=== PATIENT | female | born 2005 | race Two or more races ===

== ENCOUNTER 2025-03-31 02:51 | Emergency (ER) | payer SELFPAY ==
[2025-03-31 02:57] VITALS: BP 106/63; BP 115/70; PULSE 65; RESP 20; TEMP 36.6; O2SAT 97; O2SAT 99; BMI 20.5
--- OUTSIDE RECORDS SUMMARY | 2025-03-31 03:34 | XMS_ITS | Encounter Summary ---
Author Organization [facility] Address [address] [place] [address] Phone Care Team Providers Care Gas Distribution And Emergency Clerk Name Role Phone Pcp, Unknown Primary Care Provider Unavailabl e Encounter Details Date Type Department Care Team (Late st Contact Info) Description 03/06/2025 Procedure Pass [facility], Ct Scan - [address] [address] Social History Tobacco Use Types Packs/Day Years Used Date Smoking Tobacco: Never Assessed Education Answer Date Recorded Are you interested in more education? Not on ron e 03/06/2025 Are you concerned about learning? Not on file 03/06/2025 No 03/06/2025 No 03/06/2025 Food Answer Date Recorded Within the past 6 months we worried whether our food would run out before we got money to buy more. Never True 03/06/2025 Within the past 6 months the food we bought just didn't last and we didn't have enough money to get more. Never True Residential Stability Answer Date Recor ded What is your housing situation today? I have anca sing 03/06/2025 How many times have you move d in the past 12 months? Zero (I did not move) 03/06/2025 Paying for Meds Answer Date Recorded Do you have trouble paying for medicines? No 03/06/2025 Paying Utility Bills Answer Date Record ed Do you have trouble paying your heating or elect ricity bill? No 03/06/2025 Transportation Answer Date Recorded Has the lack of transportati on kept you from medical appointments or from getting medications? No 03/06/2025 Digital Access Answer Date Recorded No 03/06/2025 Yes 03/06/2025 Do you have reliable internet access at home? Ye s 03/06/2025 Do you have a device (e.g., phone, tablet, computer) with a working camera? Yes 03/06/2025 Intimate Partner Violence Answer Date R ecorded Are you denied basic needs s uch as food, clothing, or medical care? Patient unable to respond 03/06/2025 In the past 12 months have y ou been in a relationship with a person who hurts, threatens, or tries to control you? Patient unable to respond 03/06/2025 Are you denied basic needs s uch as food, clothing, or medical care? Patient unable to respond 03/06/2025 In the past 12 months have y ou been in a relationship with a person who hurts, threatens, or tries to control you? Patient unable to respond 03/06/2025 Comments Unknown Sex and Gender Information Value Date Recorded Sex Assigned at Not on file Legal Sex Female 1:47 AM EST Gender Identity Not on file Sexual Orientation Not on file documented as of this encounter Functional Status * Calculated C-SSRS Risk Score (Lifetime/Recent) Answer Date of Assessment Author No Risk Indicated 03/06/2025 10:49 AM Melba He RN * Prosser Suicide Severity Rating Scale (Screener/Recent Self-Report) Question Answer Date of Assessment Author 1. Wish to be (Past 1 Month) No 025 10:49 AM Melba Berg RN 2. Non-Specific Active Suici allison Thoughts (Past 1 Month) No 03/06/2025 10:49 AM Melba Berg RN 6. Suicidal Behavior (Lifetime) No 5 10:49 AM Melba Berg, LUCHO documented as of this encounter Plan of Treatment Not on file documented as of this encounter Visit Diagnoses Not on filedocumented in this encounter Care Teams Gas Distribution And Emergency Clerk Relationship Specialty Start Date End Date Pcp, Unknown PCP - General 03/06/25 documented as of this encounter Additional Source Comments The information contained in this document represents components of the legal health record. It is not the complete legal health record.[facility]
--- OUTSIDE RECORDS SUMMARY | 2025-03-31 03:34 | XMS_ITS | Encounter Summary ---
Author Organization [facility], [facility], [facility] [employer], and Affiliates Address [address] [place] [address] Care Team Providers Care Director Of Public Relations Name Role Phone Monty Meehan MD Primary Care Provider [phone]- [phone] Encounter Details Date Type Department Care Team (Late st Contact Info) Description 08/28/2021 [facility] [address] [place] [id number] Ashwin Sun Jr., MD [address] [place] [address] [address] [place], [place] [id number] Closed displaced fracture of metatarsal bone of right foot with routine healing, unspecified metatarsal, subsequent encounter (Primary Dx) Social History Tobacco Use Types Packs/Day Years Used Date Smoking Tobacco: Never Smokeless Tobacco: Never Alcohol Use Standard Drinks/Week Comments Yes 0 (1 standard drink = 0.6 oz pur e alcohol) rare Comments Unknown Sex and Gender Information Value Date Recorded Sex Assigned at Female 10/06/2023 1:23 PM PDT Legal Sex Female 11:03 AM PDT Gender Identity Female 10/06/2023 1:23 PM PDT Sexual Orientation Straight 10/06/2023 1: 23 PM PDT documented as of this encounter Plan of Treatment Not on file documented as of this encounter Visit Diagnoses Diagnosis Closed displaced fracture of metatarsal bone of right foot with routine healing, unspecified metatarsal, subsequent encounter- Primary documented in this encounter Care Teams Director Of Public Relations Relationship Specialty Start Date End Date Monty Meehan MD PCP - General Pediatrics 07/09/17 documented as of this encounter
--- OUTSIDE RECORDS SUMMARY | 2025-03-31 03:34 | XMS_ITS | Clinical Summary ---
Author Organization [facility], [facility], [facility] [employer], and Affiliates Address [address] [facility] [facility] [place] [address] Care Team Providers Care Taxation Inspector Name Role Phone Monty Meehan MD Primary Care Provider [phone]- [phone] Allergies No known active allergies Medications ferrous sulfate 325 mg (65 mg elemental) tablet 8 Active HYDROcodone-royal taminophen (NORCO) 5-325 mg tablet Take 1-2 tablets by mouth every 6 (six) hours as needed for Pain 20 tablet Active Additional Information Patient not taking.Reported on 09/21/2021 Active Problems Problem Noted Date Diagnosed Date Presence of subdermal contraceptive implant 06/27 Overview (07/18/2021): Nexplanon left arm placed 07/17 Allergic rhinitis 07/12/2014 Resolved Problems Problem Noted Date Diagnosed Date Resolved Date Pneumonia 05/25/2014 07/18/2021 Immunizations Immunization Administration Dates Next Due DTaP 12/04/2009, 0,05/15/2004,08/15,2003,2003 Hep B,Adult 2003,2003 Hepatitis A 02/15/2010,11/08/2005 HiB PRP-OMP 05/15/2004, 4,2003,04/12 Hib, Unspecified 05/15/2004, 4,2003,04/12 Hpv, Unspecified 03/25/2016,03/13/2015 IPV 12/04/2009, 4,2003,04/12 Influenza 01/28/2021 MMR 02/15/2004 MMRV 12/04/2009 Meningococcal (Mcv4), Unspecified 03/13/2015 Meningococcal Group A/C/W/Y conjugate 11/30/2019 Meningococcal Group B (Trumenba) 02/13/2021 Pneumococcal Conjugate (Prevnar 7) 05/15,2003,2003,04/12 Tdap 06/24/2013 Varicella 05/15/2004 Family History Medical History Relation Name Comments Breast cancer Neg Hx Colon cancer Neg Hx Deep vein thrombosis Neg Hx Ovarian cancer Neg Hx Stroke Neg Hx Social History Tobacco Use Types Packs/Day Years Used Date Smoking Tobacco: Never Smokeless Tobacco: Never Alcohol Use Standard Drinks/Week Comments Yes 0 (1 standard drink = 0.6 oz pur e alcohol) rare [facility] Utilities Answer Date Recorded In the past 12 months has [employer], gas, oil, or water [employer] threatened to shut off services in your home? No 10/06/2023 AUDIT-C Answer Date Recorded Q1: How often do you have a drink containing alc ohol? Patient declined 10/06/2023 Q2: How many drinks containi ng alcohol do you have on a typical day when you are drinking? Patient declined 10/06/2023 Q3: How often do you have si x or more drinks on one occasion? Patient declined 10/06/2023 Overall Financial Resource Strain (CARDIA) Answe r Date Recorded How hard is it for you to pa y for the very basics like food, housing, medical care, and heating? Not hard at all 10/06/2023 Hunger Vital Sign Answer Date Recorded Within the past 12 months, y ou worried that your food would run out before you got the money to buy more. Never true 10/06/19 24 Within the past 12 months, t he food you bought just didn't last and you didn't have money to get more. Never true 10/06/2023 PRAPARE - Transportation Answer Date Re corded In the past 12 months, has l ack of transportation kept you from medical appointments or from getting medications? No 09/26 In the past 12 months, has l ack of transportation kept you from meetings, work, or from getting things needed for daily living? No 10/06/2023 Housing Stability Vital Sign Answer Jim e Recorded In the last 12 months, was t here a time when you were not able to pay the mortgage or rent on time? No 10/06/2023 Number of Times Moved in the Last Year Not on fi le 10/06/2023 Homeless in the Last Year Not on file 2023 Comments Unknown Sex and Gender Information Value Date Recorded Sex Assigned at Female 10/06/2023 1:23 PM PDT Legal Sex Female 11:03 AM PDT Gender Identity Female 10/06/2023 1:23 PM PDT Sexual Orientation Straight 10/06/2023 1: 23 PM PDT Last Filed Vital Signs Vital Sign Reading Time Taken Comments Blood Pressure 130/68 08/13/2021 3:09 PM PDT Pulse 68 09/21/2021 7:53 AM PDT Temperature 36.5 C (97.7 F) 09/21/2021 7:53 AM PDT Respiratory Rate 20 10/28/2017 2:17 PM PDT Oxygen Saturation 98% 09/21/2021 7:53 AM PDT Inhaled Oxygen Concentration - - Weight 57.8 kg (127 lb 6.8 oz) 08/13/2021 3:09 P M PDT Height 172.7 cm (5' 8 ) 08/13/2021 3:09 PM PDT Body Mass Index 19.37 08/13/2021 3:09 PM PDT Plan of Treatment Health Maintenance Due Date Last Done Comments Hepatitis B Routine Screening 2003 Hepatitis B Vaccines (3 of 3 - 3-dose series) 2003 2003, 2003 Chlamydia and Gonorrhea Screening 2019 HIV Routine Screening 2021 Hepatitis C Routine Screening 2021 Tobacco Screening 2021 Cervical Cancer Screening 02/11/2024 Influenza Vaccines (#1) 2024 01/28/2021 Covid-19 Vaccine ( season) 2024 04/07/2021, 09/03/2020, 08/13/2020 Td Immunization 10/22/2032 10/22/2022, 06/24/2013 Zoster Vaccines (1 of 2) 2053 Pneumococcal Vaccine (0-49 years) Aged Out 05/15/2004, 2003, 2003, Additional history exists No longer eligible based on patient's age to complete this topic HPV Vaccines Completed 03/25/2016, 03/13/2015 Meningitis B Vaccines Completed 10/18/2021, 021 Tdap Immunization Completed 10/22/2022, 06/24/[address] [place] [address] Care Teams Taxation Inspector Relationship Specialty Start Date End Date Monty Meehan MD PCP - General Pediatrics 07/09/17
--- OUTSIDE RECORDS SUMMARY | 2025-03-31 03:34 | XMS_ITS | Patient Health Record ---
Author Organization [facility] Address [address] [place] [address] Care Team Providers Care Aircraft Cleaning Supervisor Name Role Phone PCP, Does not have a Primary Care Provider Unava ilable Allergies No Known Allergies Reason For Referral No Information Medications Medication SIG (Take, Route, Fr equency, Duration) Notes Start Date End Date Status Calcium Not-Taking Social History Tobacco Use: Social History Observation Description Date Details (start date - stop date) Never Smoker NA - NA Tobacco Use/Smoking Question Answer Notes You are a nonsmoker Section Notes: Non-Smoker Non-Smoker Plan Of Treatment Pending Test Test Name Order Date Wound Repair Scalp, Neck, Axilla, Trunk, Extremities, less than 2.5-7.5cm 12/30/2016 Insurance Providers Payer Name Payer Address Payer Phone Subscriber Number Group Number Insured Name Patient Relationship to Insured Coverage Start Date Coverage End Date [employer] PPO [address] [address] [place] [address] [phone] [id number] CARMEN MCKEON Self - patient is the insured Medical (General) History Medical History History ICD Code anemia R foot fracture; surgery 2 years ago
--- OUTSIDE RECORDS SUMMARY | 2025-03-31 03:34 | XMS_ITS | Clinical Summary ---
Author Organization [facility] Address [address] [facility] [address] [place] [phone] Phone Care Team Providers Care Bearing Maker Name Role Phone Pcp, Unknown Primary Care Provider Unavailabl e Allergies No known active allergies Medications No known medications Encounters Date Type Department Care Team Description 03/06/2025 1:52 AM EST - 03/06/2025 10:57 AM EST Emergency [facility] [address] [place] [address] Vance Lang, Edy Vera MD Discharge Disposition: Home or Self Care 03/06/[address] [address] 03/06/[address] [address] from Last 3 Months Social History Tobacco Use Types Packs/Day Years [...] is your housing situation today? I have ancadavid chapman 03/06/2025 How many times have you move [...] on file Sexual Orientation Not on file Last Filed Vital Signs Vital Sign Reading Time Taken Comments Blood Pressure 95/60 03/06/2025 10:44 AM EST Pulse 62 03/06/2025 10:44 AM EST Temperature 36.8 C (98.2 F) 03/06/2025 10:44 AM EST Respiratory Rate 18 03/06/2025 10:44 AM EST Oxygen Saturation 98% 03/06/2025 10:44 AM EST Inhaled Oxygen Concentration - - Weight - - Height - - Body Mass Index - - Plan of Treatment Health Maintenance Due Date Last Done Comments DEPRESSION SCREENING 2015 SMOKING Hx and SMOKELESS TOB ACCO SCREENING 02/11/2016 HPV VACCINES (1 - 3-dose series) 2018 CHLAMYDIA SCREENING 2019 MENINGOCOCCAL VACCINES (B) ( 1 of 2 - Standard) 2019 HEPATITIS C SCREENING 2021 HIV ONE-TIME SCREENING (18-6 5 YEARS) 2021 Adult Td,Tdap Booster 06/24/2023 06/24/2013 PAP SMEAR 02/11/2024 INFLUENZA VACCINE (#1) 2024 COVID-19 VACCINE (2024-2 6 season) 2024 HEPATITIS A VACCINES Aged Out No long er eligible based on patient's age to complete this topic HIB VACCINES Aged Out No longer eligi ble based on patient's age to complete this topic MENINGOCOCCAL VACCINES (ACWY) Aged Out No longer eligible based on patient's age to complete this topic PNEUMOCOCCAL VACCINES (0-49 years) Aged Out No longer eligible based on patient's age to complete this topic Medical Devices Not on file Procedures Procedure Name Priority Date/Time Associated Diagnosis Comments LACERATION REPAIR Routine 03/06/2025 3:[address] CERVICAL SPINE WITHOUT CONTRAST Routine 03/06/2025 2:[address] HEAD WITHOUT CONTRAST Routine 03/06/2025 2:37 AM EST from Last 3 Months Results * LACERATION REPAIR (03/06/2025 3:57 AM EST) Narrative Vance Lang DO - 03/06/2025 3:57 AM EST Vance Lang DO 03/06/2025 3:57 AM Laceration/Wound Repair Date/Time: 03/06/2025 3:57 AM Performed by: Vance Lang DO Authorized by: Vance Lang DO Injury: Body area: Head/neck Location details: Scalp Laceration length (cm): 2 Foreign bodies: No foreign bodies Tendon involvement: None Nerve involvement: None Vascular damage?: No Patient sedated?: No Anesthesia: No Procedure Details: Irrigation solution: Saline Irrigation method: Syringe Amount of cleaning: Standard Skin closure: [place] Number of sutures: 2 Patient tolerance: Patient tolerated the procedure well with no immediate complications us Vance G Lang DO PROCEDURE/MINOR SURGICAL ORDE RABLES Final Result * CT CERVICAL SPINE WITHOUT CONTRAST (03/06/2025 2:37 AM EST) Anatomical Region Laterality Modality C-spine Computed Tomogra phy 03/06/2025 3:36 AM EST Impressions 03/06/2025 3:42 AM EST 1. No acute intracranial findings. 2. No acute fracture or traumatic malalignment of the cervical spine. Narrative 03/06/2025 3:[address] HEAD WITHOUT CONTRAST, CT CERVICAL SPINE WITHOUT CONTRAST Referring clinician's provided indication for this examination in [facility]: * Head trauma, abnormal mental status (Age 19-64y) TECHNIQUE: CTs of the head and cervical spine were performed without intravenous contrast using tailored dose modulation techniques. Images were reconstructed in the axial, coronal, and sagittal planes. COMPARISON: None. FINDINGS: HEAD: Brain Parenchyma: No midline shift, mass effect, parenchymal hemorrhage, or evidence of acute territorial infarct. Ventricular System and Extra-Axial Spaces: No extra-axial fluid collections. Basal cisterns are patent. No hydrocephalus. Osseous and Extracranial Structures: Small left occipital scalp hematoma, without underlying calvarial fracture. No significant paranasal sinus disease. No orbital abnormality. CERVICAL SPINE: Alignment and Vertebrae: No traumatic malalignment. Vertebral bodies and posterior elements are intact. Discs and Endplates: No disc height loss or endplate irregularities. Other Findings: Lung apices are clear. Left-sided nodule measuring 9 mm. Procedure Note Abiodun Smallwood MD - 03/06/2025 CT HEAD WITHOUT CONTRAST, CT CERVICAL SPINE WITHOUT CONTRAST Referring clinician's provided indication for this examination in [facility]: *Head trauma, abnormal mental status (Age 19-64y) TECHNIQUE: CTs of the head and cervical spine were performed withoutintravenous contrast using tailored dose modulation techniques. Imageswere reconstructed in the axial, coronal, and sagittal planes. COMPARISON: None. FINDINGS: HEAD: Brain Parenchyma: No midline shift, mass effect, parenchymal hemorrhage,or evidence of acute territorial infarct. Ventricular System and Extra-Axial Spaces: No extra-axial fluidcollections. Basal cisterns are patent. No hydrocephalus. Osseous and Extracranial Structures: Small left occipital scalp hematoma,without underlying calvarial fracture. No significant paranasal sinusdisease. No orbital abnormality. CERVICAL SPINE: Alignment and Vertebrae: No traumatic malalignment. Vertebral bodies andposterior elements are intact. Discs and Endplates: No disc height loss or endplate irregularities. Other Findings: Lung apices are clear. Left-sided nodule measuring 9 mm. IMPRESSION: 1. No acute intracranial findings. 2. No acute fracture or traumatic malalignment of the cervical spine. us Vance Lang DO IMG CT XSPECIALTY ORDERABLES Final Result * CT HEAD WITHOUT CONTRAST (03/06/2025 2:37 AM EST) Anatomical Region Laterality Modality Head Computed Tomogra phy 03/06/2025 3:36 AM EST Impressions 03/06/2025 3:42 AM EST 1. No acute intracranial findings. 2. No acute fracture or traumatic malalignment of the cervical spine. Narrative 03/06/2025 3:[address] HEAD WITHOUT CONTRAST, CT CERVICAL SPINE WITHOUT CONTRAST Referring clinician's provided indication for this examination in [facility]: * Head trauma, abnormal mental status (Age 19-64y) TECHNIQUE: CTs of the head and cervical spine were performed without intravenous contrast using tailored dose modulation techniques. Images were reconstructed in the axial, coronal, and sagittal planes. COMPARISON: None. FINDINGS: HEAD: Brain Parenchyma: No midline shift, mass effect, parenchymal hemorrhage, or evidence of acute territorial infarct. Ventricular System and Extra-Axial Spaces: No extra-axial fluid collections. Basal cisterns are patent. No hydrocephalus. Osseous and Extracranial Structures: Small left occipital scalp hematoma, without underlying calvarial fracture. No significant paranasal sinus disease. No orbital abnormality. CERVICAL SPINE: Alignment and Vertebrae: No traumatic malalignment. Vertebral bodies and posterior elements are intact. Discs and Endplates: No disc height loss or endplate irregularities. Other Findings: Lung apices are clear. Left-sided nodule measuring 9 mm. Procedure Note Abiodun Smallwood MD - 03/06/2025 CT HEAD WITHOUT CONTRAST, CT CERVICAL SPINE WITHOUT CONTRAST Referring clinician's provided indication for this examination in [facility]: *Head trauma, abnormal mental status (Age 19-64y) TECHNIQUE: CTs of the head and cervical spine were performed withoutintravenous contrast using tailored dose modulation techniques. Imageswere reconstructed in the axial, coronal, and sagittal planes. COMPARISON: None. FINDINGS: HEAD: Brain Parenchyma: No midline shift, mass effect, parenchymal hemorrhage,or evidence of acute territorial infarct. Ventricular System and Extra-Axial Spaces: No extra-axial fluidcollections. Basal cisterns are patent. No hydrocephalus. Osseous and Extracranial Structures: Small left occipital scalp hematoma,without underlying calvarial fracture. No significant paranasal sinusdisease. No orbital abnormality. CERVICAL SPINE: Alignment and Vertebrae: No traumatic malalignment. Vertebral bodies andposterior elements are intact. Discs and Endplates: No disc height loss or endplate irregularities. Other Findings: Lung apices are clear. Left-sided nodule measuring 9 mm. IMPRESSION: 1. No acute intracranial findings. 2. No acute fracture or traumatic malalignment of the cervical spine. us Vance Lang DO IMG CT HEAD/NECK Final Result from Last [address] [place] [address] [address] [place] [address] [place] [address] [address] [place] [place] [address] PPO EPO Care Teams Bearing Maker Relationship Specialty Start Date End Date Pcp, Unknown PCP - General 03/06/25 Additional Source Comments The information contained in this document represents components of the legal health record. It is not the complete legal health record.[facility]
--- OUTSIDE RECORDS SUMMARY | 2025-03-31 03:34 | XMS_ITS | Encounter Summary ---
Author Organization [facility] Address [address] [place] [address] Phone Care Team Providers Care Hydrogen Treater Name Role Phone Pcp, Unknown Primary Care Provider Unavailabl e Encounter Details Date Type Department Care Team (Late st Contact Info) Description 03/06/2025 Procedure Pass [facility], Ct Scan - [address] [address] Social History Tobacco Use Types Packs/Day Years [...] 03/06/2025 10:49 AM Melba He RN * Lamar Suicide Severity Rating Scale (Screener/Recent Self-Report) Question [...] on filedocumented in this encounter Care Teams Hydrogen Treater Relationship Specialty Start Date End Date Pcp, Unknown PCP - General 03/06/25 documented as of this encounter Additional Source Comments The information contained in this document represents components of the legal health record. It is not the complete legal health record.[facility]
--- OUTSIDE RECORDS SUMMARY | 2025-03-31 03:34 | XMS_ITS | Clinical Summary ---
Author Organization [facility] Address [address] , [address] [place] [address] Care Team Providers Care Refrigeration Engineering Teacher Name Role Phone HUGH EVANS Attending Clinician Unavailable MARY ADAIR Attending Clinician Unavailable MIKKI HAWTHORNE Attending Clinician Unavailable EDITH YIP Attending Clinician Unavailab TOI Smith Attending Clinician Unavailab CLIF Hodgson Attending Clinician Unavailable JANNETH DAWKINS Attending Clinician UnavailSERAFIN Guevara Attending Clinician Unavailable CHELSEA WORKMAN Attending Clinician Unavailable DINORAH LYNN Attending Clinician Unavailgillian MELÉNDEZ Attending Clinician Unavailable REYNALDO PARK Attending Clinician Unavail able [employer] Attending Clinician Unavailable DALTON MELTON Attending Clinician Unavaila MANUEL Kenyon Attending Clinician Unavailab VALDO Clemente Attending Clinician Unavailable JULIET RIVAS Attending Clinician UnavailTACHO Rios Attending Clinician Unavailable KATHLEEN TOLBERT Attending Clinician UnavailAVERY Apodaca Attending Clinician Unavailable FLOWER WOOD Attending Clinician Unavailable HUGH EVANS Admitting Clinician Unavailable MARY ADAIR Admitting Clinician Unavailable MIKKI HAWTHORNE Admitting Clinician Unavailable EDITH YIP Admitting Clinician Unavailab TOI Smith Admitting Clinician Unavailab CLIF Hodgson Admitting Clinician Unavailable JANNETH DAWKINS Admitting Clinician UnavailSERAFIN Guevara Admitting Clinician Unavailable CHELSEA WORKMAN Admitting Clinician Unavailable DINORAH LYNN Admitting Clinician Unavailgillian MELÉNDEZ Admitting Clinician Unavailable REYNALDO PARK Admitting Clinician Unavail able [employer] Admitting Clinician Unavailable DALTON MELTON Admitting Clinician Unavaila MANUEL Kenyon Admitting Clinician Unavailab VALDO Clemente Admitting Clinician Unavailable JULIET RIVAS Admitting Clinician UnavailTACHO Rios Admitting Clinician Unavailable KATHLEEN TOLBERT Admitting Clinician UnavailAVERY Apodaca Admitting Clinician Unavailable FLOWER WOOD Admitting Clinician Unavailable Payers Payer Name Policy Type Policy Number Effective Date Expira tion Date BSC Other 2022 00:00:00 04-27 00:00:00 Problems This patient has no known problems. Allergies, Adverse Reactions, Alerts This patient has no known allergies or adverse reactions. Medications Ordered Medication Name Filled Medication Name Start Date Stop Date Current Medication? Ordering Clinician Indication Dosage Frequency Signature (SIG) Comments Components FLOVENT HFA AER 44MCG FLOVENT HFA AER 44MCG 0 7-19 00:00: 00 Yes CLIF GOMEZ FLOVENT HFA AER 44MCG FLOVENT HFA AER 44MCG 0 7-19 00:00: 00 Yes CLIF GOMEZ ALBUTEROL AER HFA ALBUTEROL AER HFA 0 718 00:00: 00 Yes HUGH EVANS FLOVENT HFA AER 44MCG FLOVENT HFA AER 44MCG 0 7-18 00:00: 00 Yes HUGH EVANS MUPIROCIN OIN 2% MUPIROCIN OIN 2% 0 6-28 00:00: 00 Yes HUGH EVANS AMOX/K CLAV TAB 875-125 AMOX/K CLAV TAB [id number] [id number] 6-27 00:00: 00 Yes HUGH EVANS TRI-SPRINTE C TAB TRI-SPRINTE C TAB 1-06 00:00: 00 Yes HUGH EVANS FLUARIX QUAD INJ FLUARIX QUAD INJ 2020-04 0-03 00:00: 00 Yes ARIE JOY AZELAIC ACID GEL 15% AZELAIC ACID GEL 15% 5-03 00:00: 00 Yes ALEJANDRINA EDMONDS TRI-SPRINTE C TAB TRI-SPRINTE C TAB 2019-04 1-05 00:00: 00 Yes HUGH EVANS FLUARIX QUAD INJ FLUARIX QUAD INJ 0 9-16 00:00: 00 Yes SHONA SOW TRI-SPRINTE C TAB TRI-SPRINTE C TAB 0 8-04 00:00: 00 Yes HUGH EVANS FLUZONE QUAD INJ FLUZONE QUAD INJ 2018-04 00:00: 00 Yes ARIE FIGUEROA Mupirocin (1 TUBE in 1 CARTON > 22 g in 1 TUBE) Mupirocin (1 TUBE in 1 CARTON > 22 g in 1 TUBE) 0 08-18 00:00: 00 Yes AARONHILDAYOSVANYO MUPIROCIN OIN 2% MUPIROCIN OIN 2% 08-18 00:00: 00 Yes AARONBECKI STEVENS FLUARIX QUAD INJ FLUARIX QUAD INJ 2017-04 0 00:00: 00 Yes SHONA SOW FEROSUL TAB 325MG FEROSUL TAB 325MG 0 09-24 00:00: 00 Yes [id number] ONDANSETRON TAB 8MG ONDANSETRON TAB 8MG 0 16 00:00: 00 Yes JULIET RIVAS Ondansetron Hydrochlori de (30 TABLET, FILM COATED in 1 BOTTLE ) Ondansetron Hydrochlori de (30 TABLET, FILM COATED in 1 BOTTLE ) 16 00:00: 00 Yes [id number] EPIDUO GEL 0.1-2.5% EPIDUO GEL 0.1-2.5% 07-17 00:00: 00 Yes DALTON MELTON EPIDUO (1 BOTTLE, PUMP in 1 CARTON > 45 g in 1 BOTTLE, PUMP) EPIDUO (1 BOTTLE, PUMP in 1 CARTON > 45 g in 1 BOTTLE, PUMP) -20 00:00: 00 Yes [id number] EPIDUO (1 BOTTLE, PUMP in 1 CARTON > 45 g in 1 BOTTLE, PUMP) EPIDUO (1 BOTTLE, PUMP in 1 CARTON > 45 g in 1 BOTTLE, PUMP) -17 00:00: 00 Yes [id number] clindamycin phosphate (1 TUBE in 1 CARTON > 60 g in 1 TUBE) clindamycin phosphate (1 TUBE in 1 CARTON > 60 g in 1 TUBE) 07-12 00:00: 00 Yes [id number] CLINDAMYCIN GEL 1% CLINDAMYCIN GEL 1% 07-12 00:00: 00 Yes DALTON MELTON Immunizations Ordered Immunization Name Filled Immunization Name Date Status Comments Refusal Reason COVID-19, mRNA, LNP-S, PF, 30 mcg/0.3 mL dose COVID-19, mRNA, LNP-S, PF, 30 mcg/0.3 mL dose 2021-04-07 00:00:00 COVID-19, mRNA, LNP-S, PF, 30 mcg/0.3 mL dose COVID-19, mRNA, LNP-S, PF, 30 mcg/0.3 mL dose 2020-08-13 00:00:00 COVID-19, mRNA, LNP-S, PF, 30 mcg/0.3 mL dose COVID-19, mRNA, LNP-S, PF, 30 mcg/0.3 mL dose 2020-09-03 00:00:00 Procedures Procedure Date / Time Performed Performing Clinicia n Device Spacer, bag or reservoir, wi th or without mask, for use with metered dose inhaler 2022-11-12 00:00:00 HUGH EVANS Drug administered through a metered dose inhaler 2022-11-12 00:00:00 HUGH EVANS Pressurized or nonpressurize d inhalation treatment for acute airway obstruction for therapeutic purposes and/or for diagnostic purposes such as sputum induction with an aerosol generator, nebulizer, metered dose inhaler 2022-11-12 00:00:00 HUGH EVANS Radiologic examination, ches t; 2 views 2022-11-12 00:00:00 HUGH EVANS Radiologic examination, ches t; 2 views 2022-11-12 00:00:00 MARY ADAIR Therapeutic procedure, 1 or more areas, each 15 minutes; therapeutic exercises to develop strength and endurance, range of motion and flexibility 2021-10-18 00:00:00 MIKKI HAWTHORNE Therapeutic procedure, 1 or more areas, each 15 minutes; neuromuscular reeducation of movement, balance, coordination, kinesthetic sense, posture, and/or proprioception for sitting and/or standing activities 2021-10-18 00:00:00 MIKKI HAWTHORNE Therapeutic procedure, 1 or more areas, each 15 minutes; therapeutic exercises to develop strength and endurance, range of motion and flexibility 2021-10-18 00:00:00 MIKKI HAWTHORNE Vaccine for meningococcus fo r injection into muscle 2021-10-18 00:00:00 EDITH YIP Removal impacted cerumen usi ng irrigation/lavage, unilateral 2021-10-18 00:00:00 EDITH YIP Immunization administration through 18 years of age via any route of administration, with counseling by physician or other qualified health career manager; first or only component of each vaccine or toxoid administere 2021-10-18 00:00:00 EDITH YIP Skin test; tuberculosis, intradermal 2021-10-16 00:00:00 HUGH EVANS Therapeutic activities, dire ct (one-on-one) patient contact (use of dynamic activities to improve functional performance), each 15 minutes 2021-10-11 00:00:00 MIKKI HAWTHORNE Therapeutic procedure, 1 or more areas, each 15 minutes; neuromuscular reeducation of movement, balance, coordination, kinesthetic sense, posture, and/or proprioception for sitting and/or standing activities 2021-10-11 00:00:00 MIKKI HAWTHORNE Therapeutic procedure, 1 or more areas, each 15 minutes; therapeutic exercises to develop strength and endurance, range of motion and flexibility 2021-10-11 00:00:00 MIKKI HAWTHORNE X-ray of foot 2021-09-21 00:00:00 TOI DOMINGUEZ X-ray of foot 2021-09-21 00:00:00 CLIF SINGH Physical therapy evaluation: low complexity, requiring these components: A history with no personal factors and/or comorbidities that impact the plan of care; An examination of body system(s) using standardized tests and 2021-09-21 00:00:00 MIKKI HAWTHORNE Therapeutic activities, dire ct (one-on-one) patient contact (use of dynamic activities to improve functional performance), each 15 minutes 2021-09-21 00:00:00 MIKKI HAWTHORNE Therapeutic procedure, 1 or more areas, each 15 minutes; neuromuscular reeducation of movement, balance, coordination, kinesthetic sense, posture, and/or proprioception for sitting and/or standing activities 2021-09-21 00:00:00 MIKKI HAWTHORNE X-ray of foot 2021-08-29 00:00:00 JANNETH DAWKINS X-ray of foot 2021-08-29 00:00:00 TOI DOMINGUEZ Open treatment of metatarsal fracture, includes internal fixation, when performed, each 2021-08-13 00:00:00 TOI DOMINGUEZ Anesthesia for open procedur es on bones of lower leg, ankle, and foot; not otherwise specified 2021-08-13 00:00:00 SERAFIN AVILES Urine test, by vis ual color comparison methods 2021-08-13 00:00:00 TOI DOMINGUEZ X-ray of foot 2021-08-13 00:00:00 TOI DOMINGUEZ Open treatment of metatarsal fracture, includes internal fixation, when performed, each 2021-08-13 00:00:00 TOI DOMINGUEZ Injection, propofol, 10 mg 2021-08-13 00:00:00 TOI BONILLA Injection, fentanyl citrate, 0.1 mg 2021-08-13 00:00:0 0 TOI DOMINGUEZ Injection, midazolam hydroch loride, per 1 mg 2021-08-13 00:00:00 TOI DOMINGUEZ Injection, metoclopramide hc l, up to 10 mg 2021-08-13 00:00:00 TOI DOMINGUEZ Unclassified drugs 2021-08-13 00:00:00 TAO DOMINGUEZ Injection, ketorolac trometh amine, per 15 mg 2021-08-13 00:00:00 TOI DOMINGUEZ Injection, ondansetron hydrochloride, per 1 mg 2021-08-13 00:00:00 TOI DOMINGUEZ Injection, dexamethasone sod ium phosphate, 1 mg 2021-08-13 00:00:00 TOI DOMINGUEZ Injection, acetaminophen, 10 mg 2021-08-13 00:00:00 TOI FISHER Unclassified drugs 2021-08-13 00:00:00 TAO DOMINGUEZ Injection, cefazolin sodium, 500 mg 2021-08-13 00:00:0 0 TOI DOMINGUEZ Injection, fentanyl citrate, 0.1 mg 2021-08-13 00:00:0 0 TOI DOMINGUEZ Ringers lactate infusion, up to 1000 cc 2021-08-13 00:00:00 TOI DOMINGUEZ Ringers lactate infusion, up to 1000 cc 2021-08-13 00:00:00 TOI DOMINGUEZ Chinle/screw for opposing qbwe-fa-atuw or soft wnumjt-jg-jqig (implantable) 2021-08-13 00:00:00 TOI DOMINGUEZ Collection of venous blood b y venipuncture 2021-08-10 00:00:00 TOI DOMINGUEZ Measurement of urea nitrogen (BUN) 2021-08-10 00:00:00 TOI DOMINGUEZ Blood count; complete (CBC), automated (Hgb, Hct, RBC, WBC and platelet count) and automated differential WBC count 2021-08-10 00:00:00 TOI DOMINGUEZ [id number] 2021-08-10 00:00:00 TOI DOMINGUEZ X-ray of foot 2021-08-06 00:00:00 CHELSEA WORKMAN X-ray of foot 2021-08-06 00:00:00 DINORAH LYNN X-ray of foot 2021-08-02 00:00:00 Crutches underarm, other henrique n wood, adjustable or fixed, pair, with pads, tips and handgrips 2021-08-02 00:00:00 DJO, Walking boot, pneumatic and/ or vacuum, with or without joints, with or without interface material, prefabricated, lks-fom-yqegr 2021-08-02 00:00:00 DJO, Insertion, non-biodegradable drug delivery implant 2021-07-18 00:00:00 REYNALDO PARK Etonogestrel (contraceptive) implant system, including implant and supplies 2021-07-18 00:00:00 REYNALDO PARK U0003 2020-10-26 00:00:00 [employer], U0005 2020-10-26 00:00:00 [employer], 0002A 2020-09-03 00:00:00 0001A 2020-08-13 00:00:00 Ankle control orthosis, stir rup style, rigid, includes any type interface (e.g., pneumatic, gel), prefabricated, [id number] 2019-01-03 00:00:00 DJO, X-ray of ankle 2019-01-03 00:00:00 Electrocardiogram, routine E CG with at least 12 leads; interpretation and report only 2017-10-28 00:00:00 VALDO DORSEY Electrocardiogram, routine E CG with at least 12 leads; tracing only, without interpretation and report 2017-10-28 00:00:00 Electrocardiogram, routine E CG with at least 12 leads; interpretation and report only 2017-10-28 00:00:00 VALDO DORSEY Ondansetron, oral, 4 mg (for circumstances falling under the medicare statute, use [employer] q code) 2017-09-10 00:00:00 JULIET RIVAS Blood count; hemoglobin (Hgb) 2017-07-07 00:00:00 DALTON MIX Cholesterol level 2017-07-07 00:00:00 ROMINA MELTON Lipoprotein, direct measurem ent; high density cholesterol (HDL cholesterol) 2017-07-07 00:00:00 DALTON MELTON Measurement of glucose in blood 2017-07-07 00:00:00 SA DALTON FARFAN Collection of capillary bloo d specimen (eg, finger, heel, ear stick) 2017-07-07 00:00:00 DALTON MELTON Screening test, pure tone, air only 2017-07-07 00:00:0 0 DALTON MELTON Simple repair of superficial wounds of scalp, neck, axillae, external genitalia, trunk and/or extremities (including hands and feet); 2.5 cm or less 2016-12-30 00:00:00 TACHO MORENO ng irrigation/lavage, unilateral 2016-10-15 00:00:00 AVERY SHERIFF Vaccine for human papilloma virus (3 dose schedule) injection into muscle 2016-03-25 00:00:00 GERONIMO, DALTON A Immunization administration through 18 years of age via any route of administration, with counseling by physician or other qualified health career manager; first or only component of each vaccine or toxoid administere 2016-03-25 00:00:00 DALTON MELTON Destruction (eg, laser surge ry, electrosurgery, cryosurgery, chemosurgery, surgical curettement), of benign lesions other than skin tags or cutaneous vascular proliferative lesions; up to 14 lesions 2015-12-04 00:00:00 FLOWER WOOD Electrocardiogram, routine E CG with at least 12 leads; tracing only, without interpretation and report 2015-07-08 00:00:00 Electrocardiogram, routine E CG with at least 12 leads; tracing only, without interpretation and report 2015-07-08 00:00:00 Electrocardiogram, routine E CG with at least 12 leads; tracing only, without interpretation and report 2015-07-08 00:00:00 Electrocardiogram, routine E CG with at least 12 leads; tracing only, without interpretation and report 2015-07-08 00:00:00 Electrocardiogram, routine E CG with at least 12 leads; tracing only, without interpretation and report 2015-07-08 00:00:00 Electrocardiogram, routine E CG with at least 12 leads; tracing only, without interpretation and report 2015-07-08 00:00:00 Electrocardiogram, routine E CG with at least 12 leads; tracing only, without interpretation and report 2015-07-08 00:00:00 Encounters Start Date/Time End Date/Time Encounter Type Admission Type Attending [facility] Care Department Encounter ID 2022-11-12 00:00:00 Professional Claim HUGH EVANS [facility] Unknown [id number] 2022-11-12 00:00:00 Institutiona l Claim Elective HUGH EVANS [facility] Unknown [id number] 2022-11-12 00:00:00 Professional Claim MARY ADAIR [facility] Unknown [id number] 2022-10-25 00:00:00 Professional Claim HUGH EVANS [facility] Unknown [id number] 2021-10-18 00:00:00 Professional Claim MIKKI HAWTHORNE [facility] Unknown [id number] 2021-10-18 00:00:00 Professional Claim EDITH YIP [facility] Unknown [id number] 2021-10-16 00:00:00 [facility] [id number] 2021-10-11 00:00:00 Professional Claim [facility] [id number] 2021-09-21 00:00:00 Institutiona l Claim Elective [facility] [id number] -[id number] 2021-09-21 00:00:00 Professional [facility] [id number] 2021-09-21 00:00:00 Professional Claim [facility] [id number] 2021-08-29 00:00:00 Professional Claim [facility] [id number] -[id number] 2021-08-29 00:00:00 Institutiona l Claim Elective [facility] [id number] -[id number] 2021-08-13 00:00:00 Professional Claim [facility] [id number] -[id number] 2021-08-13 00:00:00 Professional Claim SERAFIN AVILES [facility] Unknown [id number] 2021-08-10 00:00:00 Institutiona l Claim Elective [facility] [id number] 2021-08-08 00:00:00 Professional Claim TOI DOMINGUEZliss Unknown [id number] 2021-08-08 00:00:00 Professional Claim TOI DOMINGUEZliss Unknown [id number] 2021-08-06 00:00:00 Professional Claim [facility] [id number] -[id number] 2021-08-06 00:00:00 Institutiona l Claim Elective [facility] [id number] -[id number] 2021-08-02 00:00:[address] [facility] [id number] -[id number] 2021-08-02 00:00:00 Professional Claim Emil MELÉNDEZ Unknown [id number] 2021-08-02 00:00:00 Professional Claim AGGIEOEmil Unknown [id number] 2021-07-18 00:00:00 Professional Claim REYNALDO PARK [employer] Unknown [id number] 2021-07-18 00:00:00 Professional Claim REYNALDO PARK [employer] Unknown [id number] 2020-10-26 00:00:00 Professional Claim [employer] [facility] Unknown [id number] -[id number] 2020-09-03 00:00:00 Professional Claim [employer] Unknown [id number] 2020-08-13 00:00:00 Professional Claim [employer] Unknown [id number] 2019-01-03 00:00:00 Professional Claim DJJim [employer] Unknown [id number] 2019-01-03 00:00:00 Professional Claim [employer] Unknown [id number] 2018-08-18 00:00:00 Professional Claim DALTON MELTON [facility] Unknown [id number] 2017-10-28 00:00:00 Professional Claim MANUEL OSORIO [employer] Unknown [id number] 2017-10-28 00:00:00 Professional Claim VALDO DORSEY [facility] Unknown [id number] 2017-10-28 00:00:00 Institutiona l Claim Not Available [employer] Unknown [id number] 2017-10-28 00:00:00 Professional Claim MANUEL OSORIO [employer] Unknown [id number] 2017-10-28 00:00:00 Professional Claim VALDO DORSEY [employer] Unknown [id number] 2017-09-10 00:00:00 Professional Claim JULIET RIVAS [employer] Unknown [id number] -[id number] 2017-07-07 00:00:00 Professional Claim DALTON MELTON [employer] Unknown [id number] 2016-12-30 00:00:00 Professional Claim TACHO MORENO [employer] Unknown [id number] -[id number] 2016-10-16 00:00:00 Professional Claim KATHLEEN TOLBERT [employer] Unknown [id number] 2016-10-15 00:00:00 Professional Claim AVERY SHERIFF [facility] Unknown [id number] 2016-07-12 00:00:00 Professional Claim DALTON MELTON [employer] Unknown [id number] 2016-03-25 00:00:00 Professional Claim DALTON MELTON [facility] Unknown [id number] 2015-12-04 00:00:00 Professional Claim FLOWER WOOD [employer] Unknown [id number] 2015-07-08 00:00:00 Institutiona l Claim Elective [employer] Unknown [id number] 2015-07-08 00:00:00 Institutiona l Claim Elective [employer] Unknown [id number] 2015-07-08 00:00:00 Institutiona l Claim Elective [employer] Unknown [id number] 2015-07-08 00:00:00 Institutiona l Claim Elective [employer] Unknown [id number] Assessments Condition Name Status Diagnosis Date Treating Cl inician Sprain of unspecified ligame nt of left ankle (initial encounter) Unknown Cardiomegaly Unknown Family history of ischemic h eart disease and other diseases of the circulatory system Unknown Cardiomegaly Unknown Family history of ischemic h eart disease and other diseases of the circulatory system Unknown Cardiomegaly Unknown Family history of ischemic h eart disease and other diseases of the circulatory system Unknown Cardiomegaly Unknown Family history of ischemic h eart disease and other diseases of the circulatory system Unknown Viral wart, unspecified Unknown Encounter for immunization Unknown Encounter for initial prescr iption of implantable subdermal contraceptive Unknown Encounter for other general counseling and advice on contraception Unknown Superficial (introital) dyspareunia Unknown Z20.822 Unknown Stress fracture, right foot (initial encounter for fracture) Unknown Nondisplaced fracture of fif th metatarsal bone, right foot (initial encounter for closed fracture) Unknown Pain in right foot Unknown Nondisplaced fracture of fif th metatarsal bone, right foot (initial encounter for closed fracture) Unknown Fracture of unspecified meta tarsal bone(s), right foot (subsequent encounter for fracture with routine healing) Unknown Acne vulgaris Unknown Displaced fracture of fifth metatarsal bone, right foot (initial encounter for closed fracture) Unknown Displaced fracture of fifth metatarsal bone, right foot (initial encounter for closed fracture) Unknown Displaced fracture of fifth metatarsal bone, right foot (initial encounter for closed fracture) Unknown Displaced fracture of fifth metatarsal bone, right foot (subsequent encounter for fracture with routine healing) Unknown Displaced fracture of fifth metatarsal bone, right foot (subsequent encounter for fracture with routine healing) Unknown Displaced fracture of fifth metatarsal bone, right foot (subsequent encounter for fracture with routine healing) Unknown Pain in unspecified ankle an d joints of unspecified foot Unknown Pain in unspecified ankle an d joints of unspecified foot Unknown Encounter for screening for respiratory tuberculosis Unknown Pain in right ankle and join ts of right foot Unknown SOP.1 Unknown Impacted cerumen, right ear Unknown Pain in right ankle and join ts of right foot Unknown Pain in unspecified ankle an d joints of unspecified foot Unknown Encounter for immunization Unknown Displaced fracture of fifth metatarsal bone, right foot (initial encounter for closed fracture) Unknown Z20.822 Unknown Fracture of unspecified meta tarsal bone(s), right foot (subsequent encounter for fracture with routine healing) Unknown Encounter for screening for respiratory tuberculosis Unknown R05.3 Unknown R05.9 Unknown R05.3 Unknown Encounter for immunization Unknown Otalgia, right ear Unknown Encounter for immunization Unknown Pain in right leg Unknown Laceration without foreign b ulices, right lower leg (initial encounter) Unknown Other foreign body or object entering through skin (initial encounter) Unknown Encounter for routine child health examination without abnormal findings Unknown Palpitations Unknown Anemia, unspecified Unknown Family history of other endo crine, nutritional and metabolic diseases Unknown Infectious gastroenteritis a nd colitis, unspecified Unknown Abnormal weight loss Unknown Palpitations Unknown Palpitations Unknown Palpitations Unknown Palpitations Unknown Palpitations Unknown Follicular disorder, unspecified Unknown Unspecified injury of left a nkle (initial encounter) Unknown
--- OUTSIDE RECORDS SUMMARY | 2025-03-31 03:34 | XMS_ITS | Encounter Summary ---
Author Organization [facility], [facility], [facility], and Affiliates Address [address] [place] [address] Care Team Providers Care Can Washer Name Role Phone Monty Meehan MD Primary Care Provider [phone] Encounter Details Date Type Department Care Team (Late st Contact Info) Description 09/13/2021 Orders Only [facility] Orthopedic Surgery - A [facility] [address], [facility] [address] [place] [address] Ashwin Sun Jr., MD [address] [place] [address] , [facility] [address] [place] [address] Closed displaced fracture of metatarsal bone of [...] Primary documented in this encounter Care Teams Can Washer Relationship Specialty Start Date End Date Monty Meehan MD PCP - General Pediatrics 07/09/17 documented as of this encounter
[2025-03-31 04:00] VITALS: BP 94/49; PULSE 60; RESP 16; TEMP 36.6; O2SAT 97
--- NOTE | 2025-03-31 04:17 | ED_ITS ---
HPI - General Adult General Chief complaint: General Medical Stated complaint: CRISIS ETOH Time Seen by Provider: 03/31/25 03:16 Source: EMS and police Limitations: other (Intoxication) History of Present Illness ED Provider: Ann Parsons PA-C HPI narrative: 20-year-old female presents with a intoxication. Patient was brought in from [facility], after she was throwing objects and breaking objects in her room. Her roommate called for assistance. When PD arrived, the patient's behavior escalated, she began hitting a wall. She arrives as a section 12 given need for potential crisis consult. History limited from the patient as she is clinically intoxicated, she does admit to drinking alcohol. Related Data Allergies Allergy/AdvReac Type Severity Reaction Status Date / Time No Known Allergies Allergy Verified 03/31/25 03:03 Review of Systems 2 Review of Systems: Unable to obtain secondary to clinical intoxication Yes all other systems are reviewed and are negative PMFSH Past Medical History Attestation statement: The following information was validated with the patient. Social History Social History Smoked in Last 30 Days: No Advance Directives: Yes Advance Directives Information Provided: Yes Advance Directives on File: No Patient : No Physical Exam ED Vital Signs: Vital Signs - 24 hr 03/31/25 02:57 03/31/25 04:00 03/31/25 05:58 Temperature 97.8 F 97.8 F 98.3 F Pulse Rate 65 60 76 Respiratory Rate 20 16 16 Blood Pressure 106/63 94/49 L 90/40 L Pulse Oximetry 97 97 95 Oxygen Delivery Method Room Air Room Air Room Air 03/31/25 13:16 Temperature 98.3 F Pulse Rate 76 Respiratory Rate 16 Blood Pressure 90/40 L Pulse Oximetry 95 Oxygen Delivery Method Room Air BMI result Body Mass Index 20.5 Const Other: Sleeping, woken with verbal stimuli Orientation/consciousness: patient oriented x3 Resp Effort & Inspection: normal respiratory effort Cardio Other: Normal peripheral perfusion Skin Other: Warm dry no rash Neuro General: patient oriented x3, gait normal, no focal motor deficits and CN's II- XI intact bilaterally Psych Other: Intoxicated, being cooperative Course Reevaluation(s) Reevaluation #1: Time: 04:26 Date: 03/31/25 Provider: WALDO Jorgensen Patient in physician observation for potential need for psychiatric evaluation.? No acute events reported overnight. No current complaints. VS stable.? Patient is in bed search status/pending CARE team evaluation. Will continue to monitor. Reevaluation #2: received signed out we are waiting for reexam, Time: 07:38 Reevaluation #3: Patient is now awake alert eating and drinking she was seen by care team she was cleared for discharge no SI no HI At this time we will end of the ED observation status 03/31/2025 11:18 Dr Robbins Time: 11:18 Medications Administered Discontinued Medications Generic Name Dose Route Start Last Admin Trade Name Raya PRN Reason Stop Dose Admin Acetaminophen 650 mg 03/31/25 07:25 03/31/25 07:29 Acetaminophen 325 Mg Tablet PO 03/31/25 07:26 650 mg ONCE ONE Administration Medical Decision Making Medical Decision Making [facility] Narrative: 20-year-old female presents with a intoxication. Patient was brought in from [facility], after she was throwing objects and breaking objects in her room. Her roommate called for assistance. When PD arrived, the patient's behavior escalated, she began hitting a wall. She arrives as a section 12 given need for potential crisis consult. History limited from the patient as she is clinically intoxicated, she does admit to drinking alcohol. No known chronic issues History: Per patient I have considered the following differential diagnoses: SI, HI, decompensated psychiatric illness, drug/alcohol intoxication Plan: The patient is intoxicated, it sounds as if she was acting erratically in the setting of being intoxicated. It is really unclear at this point. The patient may require care team consult once she is sober. We will screen labs, ethanol, obtain a drug screen, she will be reassessed in the morning. I have independently reviewed the following tests: Labs: No leukocytosis, not anemic, no electrolyte abnormality, not , ethanol 254 Differential Diagnosis Differential Diagnoses: The differential diagnosis associated with the presentation includes See [facility] Admission/Observation Consideration of admission/observation: Escalation of care including admission/observation considered Lab Data [facility] Lab Attestation statement: I reviewed the patient's lab results. 03/31/25 04:20 03/31/25 04:20 Labs: Lab Results 03/31/25 Range/Units 04:20 WBC 7.3 (4.8-10.8) X10*3/uL RBC 4.03 L (4.20-5.50) X10*6/uL Hgb 12.4 (12.0-16.0) g/dl Hct 36.3 L (37.0-47.0) % MCV 90.1 (80.0-98.0) fL MCH 30.8 (27.0-33.0) pg MCHC 34.2 (31.0-35.0) g/dl RDW 11.6 (11.0-16.0) % Plt Count 209 (160-400) X10*3/uL MPV 9.7 (9.4-12.3) fL Immature Gran % (Auto) 0.1 (0.0-0.4) % Neut % (Auto) 52.7 (45-73) % Lymph % (Auto) 39.6 (20-40) % [place] % (Auto) 7.0 (2-11) % Eos % (Auto) 0.1 (0-4) % Baso % (Auto) 0.5 (0-2) % Lymph # (Auto) 2.9 (1.2-4.9) X10*3/uL [place] # (Auto) 0.5 (0.1-1.2) X10*3/uL Eos # (Auto) 0.0 (0.0-0.4) X10*3/uL Baso # (Auto) 0.0 (0.0-0.2) X10*3/uL Abs Immat Gran (auto) 0.01 (0.00-0.03) X10*3/uL Absolute Neuts (auto) 3.8 (2.0-8.3) x10*3/uL Absolute Nucleated RBC 0.000 (0.0-0.012) X10*3/uL Nucleated RBC % (auto) 0.0 (0.0-0.2) /100WBC Sodium 144 (135-145) mmol/L Potassium 4.0 (3.3-5.1) mmol/L Chloride 112 H (96-108) mmol/L Carbon Dioxide 22 (22-29) mmol/L Anion Gap 14 (12-20) BUN 9 (9-16) mg/dL Creatinine 0.63 (0.5-1.4) mg/dL Estim Creat Clear Calc 135.3 Estimated GFR > 60 Random Glucose 89 (60-115) mg/dL Calcium 8.9 (8.4-10.2) mg/dL Magnesium 2.0 (1.6-2.6) mg/dL Total Bilirubin 0.3 (0.0-1.0) mg/dL AST 39 H (5-31) U/L ALT 26 (0-31) U/L Alkaline Phosphatase 62 (39-117) U/L Total Protein 7.5 (6.5-8.0) g/dL Albumin 4.7 (3.5-5.0) g/dL Beta HCG, Quant < 2 mIU/mL Ethyl Alcohol 254 mg/dL Discharge Plan Discharge Clinical Impression: Alcohol intoxication Patient Disposition: Home, Self-Care Instructions: Alcohol Intoxication (ED) Additional Instructions: Follow-up with the health clinic at the school, do not drink alcohol Interventions: ED Discharge Assessment Last Done: 03/31/25 13:16 Discharge Date/Time: 03/31/25 11:30 Print Language: Italian
[2025-03-31 04:24] LABS: MANUAL DIFF FLAG NO
[2025-03-31 04:25] LABS: Hematocrit 36.3 % (37.0-47.0); Hemoglobin 12.4 g/dl (12.0-16.0); Imm Gran Abs Auto 0.01 X10*3/uL (0.00-0.03); Imm Gran Pct Auto 0.1 % (0.0-0.4); Lymphocytes Absolute Auto 2.9 X10*3/uL (1.2-4.9); Mean Corpuscular HGB Conc 34.2 g/dl (31.0-35.0); Mean Corpuscular Hemoglobin 30.8 pg (27.0-33.0); Mean Corpuscular Volume 90.1 fL (80.0-98.0); NRBC Abs Auto 0.000 X10*3/uL (0.0-0.012); NRBC Pct Auto 0.0 /100WBC (0.0-0.2); Platelet Count 209 X10*3/uL (160-400); Red Blood Count 4.03 X10*6/uL (4.20-5.50); White Blood Count 7.3 X10*3/uL (4.8-10.8)
[2025-03-31 04:49] LABS: Alanine Aminotransferase 26 U/L (0-31); Albumin Level 4.7 g/dL (3.5-5.0); Alkaline Phosphatase 62 U/L (39-117); Anion Gap 14 (12-20); Aspartate Amino Transferase 39 U/L (5-31); Blood Urea Nitrogen 9 mg/dL (9-16); Calcium 8.9 mg/dL (8.4-10.2); Carbon Dioxide 22 mmol/L (22-29); Chloride 112 mmol/L (96-108); Creatinine Clr Calc Pharmacy 135.3; Estimated Glomerular Filt Rate > 60; Magnesium 2.0 mg/dL (1.6-2.6); Potassium 4.0 mmol/L (3.3-5.1); Sodium 144 mmol/L (135-145); Total Protein 7.5 g/dL (6.5-8.0)
--- NOTE | 2025-03-31 05:54 | MHC.CARE ---
CARE Team received a call from Camille, the pressurization mechanic clinician and clinical patient case manager at [facility] office([phone]). She reports patient went out with friends and got intoxicated. She became aggressive and out of control, hitting and throwing things at the other roommates. The police were called. She reportedly kicked a workplace rehabilitation officer. Camille isn't sure how much patient is drinking, but she reports patient's level of drinking has increased. Patient first utilized their services back in 2022, but she had not been seen in a while and just recently returned to seeing them this semester. Camille states patient was seen by her psychiatrist on 03/29, but prior to that, had run out of her meds after missing that last few appointments with her psychiatrist and therapist. She is reported to be taking Lexapro and Propanolol for public speaking. Patient has a history of stress and anxiety and body image issues. Her friends were concerned about her behaviors and level of aggression. They report patient was agitated, no suicidal intent but she did unintentionally hurt herself after falling down stairs onto glass. Camille is requesting a phone call prior to patient's return to campus so the friends/roommates can be prepared. The direct number to [facility] is [phone] if Camille is unavailable at the contact she provided.
[2025-03-31 05:58] VITALS: BP 90/40; PULSE 76; RESP 16; TEMP 36.8; O2SAT 95
--- NOTE | 2025-03-31 07:40 | PC.NURSE ---
Pt reporting headache this morning. Medicated per JUN. Pt tearful, requesting to hold RNs hand and talk. Pt talked to RN about her parents, childhood and her drinking tendencies. Reporting she struggles with anxiety and alcohol use. Adamantly denying SI or HI. Plan for another care consult per MD and allowing pt to sleep.
--- NOTE | 2025-03-31 11:25 | MHC.CARE ---
Spoke with Omega Franco ([phone]), mine wedge sawyer and Camille from [place] [facility] to advise them that pt is discharging and will be back on campus in approximately 30 minutes.? Mr. Franco reports he spoke with student and she will be going to his office so he can facilitate her entry into the dorm. Camille is aware of her return and will follow up if needed.
[2025-03-31 13:16] VITALS: BP 90/40; PULSE 76; RESP 16; TEMP 36.8; O2SAT 95
== END 2025-03-31 11:30 | disposition home or self-care (01) ==
PROVIDERS: Physician Assistant Medical; Emergency Provider Emergency Medicine
DX: F10.129 Alcohol abuse with intoxication, unspecified (principal)
CPT/HCPCS: 36415; 80053; 80307; 83735; 84702; 85025; 99284; S9485